=== PATIENT | female | born 1985 | race Caucasian/White ===

== ENCOUNTER 2016-10-27 20:05 | Emergency (ER) | payer BC ==
[~2016-10-27] VITALS: Ht 180.3 cm; Wt 130.1 kg
[2016-10-27 20:26] VITALS: Ht 180.3 cm; Wt 130.1 kg
[2016-10-27] MEDS ORDERED: ACETAMINOPHEN 500 MG TAB PO STA (22:18)
[2016-10-27] MEDS ORDERED: ACETAMINOPHEN 500 MG TAB ONE (22:19)
--- NOTE | 2016-10-27 23:15 | ERD ---
ER Documentation Chief Complaint Date/Time DATE: 10/27/16 TIME: 23:00 Chief Complaint CWP x2 days HPI Pleasant 31-year-old female presents to emergency department with body aches, and shortness of breath. Patient describes the shortness of breath as "the sensation like I need to take a deep breath". Patient had tetanus vaccine yesterday, reports that she developed body aches last night, and woke this morning with a sensation that she could not take a deep breath. Patient denies any flulike symptoms, nausea, vomiting, fever, chills, chest pain, palpitations, cough, or phlegm production. She denies any tongue swelling, throat swelling, pruritus or rash. Able to eat and drink without deficit. ROS All systems reviewed and are negative except as per history of present illness. Medications Home Meds Active Scripts Acetaminophen* (Tylophen*) 500 Mg Capsule, 1 CAP PO Q6H Y for PAIN AND OR ELEVATED TEMP, #20 CAP Prov:JESSICA,KAREEM 10/27/16 Allergies Allergies: Coded Allergies: ibuprofen (Verified Allergy, Intermediate, RASH AND SWELLING, 10/27/16) ketorolac (Verified Allergy, Intermediate, RASH AND SWELLING, 10/27/16) naproxen (Verified Allergy, Intermediate, RASH AND SWELLING, 10/27/16) PMhx/Soc Medical and Surgical Hx: pt denies Medical Hx, pt denies Surgical Hx History of Surgery: Yes (GALBLADER, BREAST, RT KNEE, ORAL) Anesthesia Reaction: No Hx Respiratory Disorders: No Hx Cardiac Disorders: No Hx Psychiatric Problems: No Hx Miscellaneous Medical Probl: Yes (OVERACTIVE BLADDER) Hx Alcohol Use: Yes (OOC) Hx Substance Use: No Hx Tobacco Use: No Smoking Status: Never smoker Physical Exam Vitals Vitals stable, nursing notes reviewed Physical Exam Const: No acute distress Head: Atraumatic Eyes: No angioedema, conjunctiva clear, no injection or pallor, positive EOMI , positive PERRLA ENT: Lips moist, nonedematous ,oral mucosa moist, nonedematous, tongue midline, nonedematous, uvula rises and falls with pronation Neck: Full range of motion..~ No meningismus. Resp: Clear to auscultation bilaterally, no rales wheezes or rhonchi Cardio: Regular rate and rhythm, no murmurs Abd: Soft, non tender, non distended. Normal bowel sounds Skin: No petechiae or rashes Back: Ext: No cyanosis, or edema, patient has full range of motion of upper and lower extremities, denies any body aches, arthralgia, or difficulty ambulating. Neur: Awake and alert Psych: Normal Mood and Affect Results 24 hrs Current Medications Medications (Trade) Dose Ordered Sig/Shiva Route PRN Reason Start Time Stop Time Status Last Admin Dose Admin Acetaminophen (Tylenol Tab) 1,000 mg ONCE STAT PO 10/27/16 22:18 10/27/16 22:20 DC 10/27/16 22:20 Acetaminophen (Tylenol Tab) 500 mg STK-MED ONCE .ROUTE 10/27/16 22:19 10/27/16 22:20 DC Procedures/MDM Rate/Rhythm: [Normal Sinus Rhythm ventricular rate of 99 bpm] QRS, ST, T-waves: [No changes consistent w/ acute ischemia] Impression: [No evidence of ischemia or arrhythmia] 31-year-old female presenting to the emergency room for body aches, shortness of breath, and chest pain. Patient reports symptoms started after receiving tetanus vaccine yesterday. She reports no previous history of adverse reaction to tetanus vaccine. She denies any difficulty swallowing, physical exam shows no angioedema, tongue swelling, lip swelling, difficulty speaking or swallowing. Severe anaphylaxis reaction is not presenting. ECG reveals normal sinus rhythm at ventricular rate of 99 bpm without ectopy or ischemia, ruling out acute coronary syndrome. Patient's oxygen saturation is oxygen saturation is 99% on room air and pulmonary exam normal, imaging was not done. Pulmonary embolism, pneumonia, not suspected. I feel the patient is stable for discharge at this time. I have discussed results, examination findings, the treatment plan with the patient and family present prior to discharge. Strict indications for emergent reevaluation, side effects of medication were also discussed. All questions were answered. Patient verbalizes understanding and agrees with plan of care. Departure Diagnosis: Primary Impression: Side effects of vaccination Encounter type: initial encounter Qualified Code: T50.Z95A - Side effects of vaccination, initial encounter Condition: Good Comments Thank you for for coming to [facility] for your care today. Please ask your nurse or provider if you have questions about your care today and do not leave until all your questions have been answered. Please use any medications given as directed and follow-up with your doctor (or the doctor you were referred to) in the next 2-3 days. If you do not have a primary care doctor you may follow up at the [facility] (listed below). You may also use motrin and tylenol as needed for fever and/or pain unless instructed otherwise by your provider or nurse. Indications for more urgent follow-up have been discussed, but you may return to the Emergency Department at ANY time for any worrisome or worsening symptoms. If you have abdominal pain, please know that no test or exam you received is perfect and you should follow up within 8 hours for continued pain. If you had any imaging studies today, such as an X-Ray or CT Scan, these studies will be reviewed later by a radiologist. You will be called if there are important findings that were not identified today, so make sure the contact information you provided at registration is correct. If you received any narcotic pain control medicine today, such as Vicodin, Morphine or Dilaudid, your coordination and judgment may be affected for a number of hours. Please do not drive or operate heavy machinery, and you may want someone to assist you at home. If you were given a prescription for narcotic medication, be aware that it is very addictive- use sparingly and only if necessary. KAREEM LOPEZ Oct 27, 2016 23:11
[2016-10-27] MEDS ORDERED: ACET500C5 PO (23:18)
[2016-10-27 23:28] VITALS: BP 118/87; PULSE 68; RESP 20; TEMP 98.7
== END 2016-10-27 23:29 | disposition home or self-care (01) ==
LOC: FTE 20:05
DX: R06.02 Shortness of breath (principal); T50.Z95A Adverse effect of other vaccines and biological substances, initial encounter
CPT/HCPCS: 93005